=== PATIENT | female | born 1955 | race Caucasian/White ===

== ENCOUNTER 2019-11-24 09:05 | Emergency (ER) | payer OTHER ==
[~2019-11-24] VITALS: Ht 149.9 cm; Wt 62.6 kg
[~2019-11-24 09:05] MED LIST: LORA-972 PO; OMEP20TA5 PO
--- NOTE | 2019-11-24 09:20 | NUR ---
Patient discharged to home in stable condition. Written and verbal after care instructions given. Patient verbalizes understanding of instructions. Stressed follow up or return to ER for worsening s/s.
== END 2019-11-24 09:21 | disposition home or self-care (01) ==
LOC: ER 09:05
DX: H00.011 Hordeolum externum right upper eyelid (principal)
CPT/HCPCS: A4663